=== PATIENT | female | born 1990 | race Caucasian/White ===

== ENCOUNTER 2017-02-16 17:30 | Emergency (ER) | payer MEDICAID, OTHER ==
[~2017-02-16] VITALS: Wt 71.5 kg
[2017-02-16] MEDS ORDERED: ONDANSETRON (ODT) 4 MG TAB ODT STA (18:55)
[2017-02-16] MEDS ORDERED: IBUPROFEN 600 MG TAB PO ONE (19:00)
[2017-02-16 19:17] LABS: ADD UMIC YES; URINE BILIRUBIN (Dip) NEGATIVE (NEGATIVE); URINE BLOOD (Dip) 2+ (NEGATIVE); URINE COLOR LT. YELLOW (YELLOW); URINE GLUCOSE (Dip) NEGATIVE (NEGATIVE); URINE KETONES (Dip) NEGATIVE (NEGATIVE); URINE LEUKOCYTE ESTERASE (Dip) 2+ (NEGATIVE); URINE NITRITE (Dip) NEGATIVE (NEGATIVE); URINE TOTAL PROTEIN (Dip) NEGATIVE (NEGATIVE); URINE UROBILINOGEN (Dip) 0.2 E.U./dL (0.1-1.0)
[2017-02-16 19:32] LABS: SQUAMOUS EPITHELIAL CELL,UR MANY
[2017-02-16 19:33] LABS: BACTERIA,URINE MANY
[2017-02-16] MEDS ORDERED: IBUP-1542 PO (19:48)
[2017-02-16] MEDS ORDERED: CEPH-443 PO (19:48)
[2017-02-16] MEDS ORDERED: ONDA4TAB14 PO (19:48)
[2017-02-16] MEDS ORDERED: CEFTRIAXONE 1 GM INJ IM ONE (20:00)
--- NOTE | 2017-02-17 00:40 | ERD ---
ER Documentation Chief Complaint Date/Time DATE: 02/17/17 TIME: 00:38 Chief Complaint DYSURIA AND HEMATURIA FOR THE PAST FEW DAYS. NO DISTRESS HPI 26-year-old female presenting with dysuria for the past 2-3 days. She is not sure if she has hematuria but she noticed a pink tinge when she wiped today. Initially her symptoms started with dysuria, however now she has left flank pain that is aching, constant, nonradiating, worse with movement. She denies any associated fevers but she has felt some chills and nausea. No vomiting. No diarrhea or constipation. ROS All systems reviewed and are negative except as per history of present illness. Medications Home Meds Active Scripts Ondansetron (Ondansetron Odt) 4 Mg Tab.rapdis, 4 MG PO Q6H Y for NAUSEA AND/OR VOMITING, #10 TAB Prov:MILLIE CREWS MD 02/16/17 Ibuprofen* (Motrin*) 600 Mg Tab, 600 MG PO Q6H Y for PAIN AND OR ELEVATED TEMP, #30 TAB Prov:MILLIE CREWS MD 02/16/17 Cephalexin* (Keflex*) 500 Mg Capsule, 500 MG PO TID for 10 Days, #30 CAP Prov:MILLIE CREWS MD 02/16/17 Allergies Allergies: Coded Allergies: No Known Allergy (Unverified , 06/29/15) PMhx/Soc History of Surgery: No Anesthesia Reaction: No Hx Neurological Disorder: No Hx Respiratory Disorders: No Hx Cardiac Disorders: No Hx Psychiatric Problems: No Hx Miscellaneous Medical Probl: Yes (UTI) Hx Alcohol Use: No Hx Substance Use: No Hx Tobacco Use: No Smoking Status: Never smoker FmHx Family History: No diabetes Physical Exam Vitals Vital Signs Date Time Temp Pulse Resp B/P Pulse Ox O2 Delivery O2 Flow Rate FiO2 02/16/17 17:46 98.5 99 20 130/84 98 Physical Exam Const: Well-appearing, nontoxic, no distress Head: Atraumatic Eyes: Normal Conjunctiva ENT: Normal External Ears, Nose and Mouth. Neck: Full range of motion. No meningismus. Resp: Clear to auscultation bilaterally Cardio: Regular rate and rhythm, no murmurs Abd: Soft, non tender, non distended. Normal bowel sounds Skin: No petechiae or rashes Back: Left mild CVA tenderness Ext: No cyanosis, or edema Neur: Awake and alert Psych: Normal Mood and Affect Results 24 hrs Laboratory Tests Test 02/16/17 18:35 Urine Color LT. YELLOW Urine Clarity SLIGHTLY CLOUDY Urine pH 5.5 Urine Specific [place] <=1.005 Urine Ketones NEGATIVE Urine Nitrite NEGATIVE Urine Bilirubin NEGATIVE Urine Urobilinogen 0.2 E.U./dL Urine Leukocyte Esterase 2+ Urine Microscopic RBC 2-5/HPF Urine Microscopic WBC >200/HPF Urine Squamous Epithelial Cells MANY Urine Bacteria MANY Urine Hemoglobin 2+ Urine Glucose NEGATIVE% Urine Total Protein NEGATIVE Current Medications Medications (Trade) Dose Ordered Sig/Vikram Route PRN Reason Start Time Stop Time Status Last Admin Dose Admin Ibuprofen (Motrin) 600 mg ONCE ONCE PO 02/16/17 19:00 02/16/17 19:01 DC 02/16/17 19:05 Ondansetron HCl (Zofran Odt) 8 mg ONCE STAT ODT 02/16/17 18:55 02/16/17 18:57 DC 02/16/17 19:06 Ceftriaxone Sodium (Rocephin) 1 gm ONCE ONCE IM 02/16/17 20:00 02/16/17 20:01 DC 02/16/17 19:55 Procedures/MDM The patients presentation is most consistent with pyelonephritis. Urinalysis shows evidence of UTI. Her test was negative. Ceftriaxone 1 g IM was given. Her pain was controlled with ibuprofen p.o. Patient is well appearing and tolerating oral intake. Patient is stable for outpatient treatment with antibiotics, antiemetics, and analgesics. A prescription was given for ibuprofen and Keflex for 10 days. Patient advised to return if there is no improvement or worsening symptoms after 24-48 hours of antibiotics. Instructed to follow up with PCP in 1 week. Departure Diagnosis: Primary Impression: Pyelonephritis Condition: Stable Patient Instructions: Pyelonephritis, Female (Adult) Additional Instructions: Return to the ER if your symptoms are not improving after 24 hours of antibiotics or if you are feeling worse. Make sure you take all of the antibiotics that have been prescribed. Follow-up with your doctor after you finish the antibiotics to recheck your urine. MILLIE CREWS MD Feb 17, 2017 00:40
== END 2017-02-16 20:03 | disposition home or self-care (01) ==
LOC: FTE 17:30
DX: N12 Tubulo-interstitial nephritis, not specified as acute or chronic (principal); R11.0 Nausea
CPT/HCPCS: 81001; 81003; 87086; J0696; Z7610; 96372

== ENCOUNTER 2017-12-24 02:11 | Emergency (ER) | END 2017-12-24 06:57 | disposition home or self-care (01) ==

== ENCOUNTER 2018-08-20 09:48 | Emergency (ER) | END 2018-08-20 10:31 | disposition home or self-care (01) ==